=== PATIENT | female | born 1990 | race Caucasian/White ===

== ENCOUNTER → 2017-04-14 | Outpatient (CLI) | payer MEDICAID ==
--- NOTE | 2017-04-14 10:57 | NUR ---
Eval 2 Hr/Client presented for an eval as a referral from probation after she had a dirty UA while on probation.
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
== END | disposition home or self-care (01) ==
LOC: ADTC.GI 08:49
DX: F10.20 Alcohol dependence, uncomplicated (principal); Z56.0 Unemployment, unspecified; Z59.6 Low income; Z63.0 Problems in relationship with spouse or partner; Z63.72 Alcoholism and drug addiction in family; Z65.3 Problems related to other legal circumstances